=== PATIENT | male | born 1980 | race Caucasian/White ===

== ENCOUNTER 2017-02-22 05:38 | Emergency (ER) | payer OTHER ==
[2017-02-22] MEDS ORDERED: PROPARACAINE 0.5% OPHTH SOLN 15 ML BTL OS ONE (05:58)
--- NOTE | 2017-02-22 05:58 | PDOC ---
History of Present Illness - General Chief Complaint: Eye Problem Stated Complaint: EYE PROBLEM Time Seen by Provider: 02/22/17 05:57 History Source: Patient - History of Present Illness Initial Comments: 02/22/17 06:23 37-year-old male without any medical problems presents to the emergency department complaining of left more than right I discomfort. Patient states he was sleeping this evening and believes he was rubbing his eyes. He woke up complaining of eye discomfort denies any blurry vision or visual disturbance. Patient denies working with metal shavings or UV light. Last tetanus within 5 years. Past History - Past Medical History Allergies/Adverse Reactions: Allergies Allergy/AdvReac Type Severity Reaction Status Date / Time No Known Allergies Allergy Verified 02/22/17 05:58 Home Medications: Ambulatory Orders Acetaminophen W/ Codeine #3 [Tylenol # 3 -] 1 tab PO Q6H #12 tablet MDD 4 Erythromycin 0.5% Eye Ointment [Erythromycin 0.5% Eye Ointment -] 1 applic OU TID #1 tube 02/22/17 Review of Systems - Review of Systems Able to Perform ROS?: Yes Comments:: 02/22/17 06:24 CONSTITUTIONAL: Absent: fever, chills, diaphoresis, generalized weakness, malaise, loss of appetite HEENT: +Left>right eye discomfort; neg visual disturbance Absent: rhinorrhea, nasal congestion, throat pain, throat swelling, difficulty swallowing, mouth swelling, ear pain, eye pain, visual Changes Is the patient limited [place] proficient: No *Physical Exam - Physical Exam Comments: 02/22/17 06:26 GENERAL: Well developed, well nourished. Awake and alert. No acute distress. HEENT: Normocephalic, atraumatic. PERRLA, EOMI. No conjunctival pallor. Sclera are non- icteric. Moist mucous membranes. Oropharynx is clear. V/A: right: 20/20 Left 20/20 b/l: 20/20 *DC/Admit/Observation/Transfer Diagnosis at time of Disposition: Corneal abrasion Qualifiers: Encounter type: initial encounter Laterality: left Qualified Code(s): S05.02XA - Injury of conjunctiva and corneal abrasion without foreign body, left eye, initial encounter - Discharge Dispostion Disposition: HOME Condition at time of disposition: Stable - Prescriptions Prescriptions: Erythromycin 0.5% Eye Ointment [Erythromycin 0.5% Eye Ointment -] 1 applic OU TID #1 tube Acetaminophen W/ Codeine #3 [Tylenol # 3 -] 1 tab PO Q6H #12 tablet MDD 4 - Referrals Referrals: Renita Dooley MD [Primary Care Provider] - Bernardo Vasquez [Staff Physician] - - Patient Instructions Printed Discharge Instructions: DI for Corneal Abrasion Additional Instructions: Apply erythromycin ophthalmic ointment to both eyes 3 times a day. Take Tylenol as needed for pain Follow with the up curb setter as listed on your discharge Return back to the emergency department for severe/persistent or worsening symptoms. You did not receive a tetanus rooster today because you had one within 5 years.
[2017-02-22 06:00] VITALS: BP 126/65; PULSE 75; TEMP 97.5; BMI 36.1
[2017-02-22] MEDS ORDERED: TETRACAINE 0.5% OPHTH SOLN 2 ML BOTTLE ONE (06:08)
[2017-02-22] MEDS ORDERED: FLUORESCEIN NA 1 EA STRIP ONE (06:08)
[2017-02-22] MEDS ORDERED: ACETAMINOPHEN WITH CODEINE 300MG/30MG TABLET PO ONE (06:15)
[2017-02-22] MEDS ORDERED: ERYTHROMYCIN 0.5% OPHTHALMIC OINTMENT 3.5 GM TUBE OU ONE (06:16)
[2017-02-22] MEDS ORDERED: TETRACAINE 0.5% HCL 0.6ML DROPPER.BOTTLE OU ONE (06:30)
[2017-02-22] MEDS ORDERED: ERYTHROMYCIN 0.5% OPHTHALMIC OINTMENT 3.5 GM TUBE ONE (06:31)
[2017-02-22] MEDS ORDERED: ACETAMINOPHEN WITH CODEINE 300MG/30MG TABLET ONE (06:31)
[2017-02-22] MEDS ORDERED: FLUORESCEIN NA 1 EA STRIP OU ONE (06:41)
--- NOTE | 2017-02-22 08:51 | PDOC ---
*Physical Exam - Vital Signs Last Vital Signs Temp Pulse Resp BP Pulse Ox 97.5 F L 75 20 126/65 100 02/22/17 05:58 02/22/17 05:58 02/22/17 05:58 02/22/17 05:58 02/22/17 05:58 ED Treatment Course - Medications Given in the ED: ED Medications Discontinued Medications Generic Name Dose Route Start Last Admin Trade Name Flako PRN Reason Stop Dose Admin Acetaminophen/Codeine Phosphate 1 tab 02/22/17 06:15 02/22/17 06:31 Tylenol # 3 - PO 02/22/17 06:16 1 tab ONCE ONE Administration Erythromycin 1 applic 02/22/17 06:16 02/22/17 06:31 Erythromycin 0.5% Eye Ointment OU 02/22/17 06:17 1 applic ONCE ONE Administration Fluorescein Sodium 1 ea 02/22/17 06:41 02/22/17 06:42 Fluorets - OU 02/22/17 06:42 1 ea NOW ONE Administration Proparacaine HCl 2 drop 02/22/17 05:58 02/22/17 06:29 Alcaine - OS 02/22/17 05:59 Not Given ONCE ONE Tetracaine HCl 1 drop 02/22/17 06:30 02/22/17 06:32 Tetravisc 0.5% Eye Drops - OU 02/22/17 06:31 1 drop ONCE ONE Administration Medical Decision Making - Medical Decision Making 02/22/17 08:51 [facility] called to say they did not receive rx for tylenol # 3. Rx resent *DC/Admit/Observation/Transfer Diagnosis at time of Disposition: Corneal abrasion Qualifiers: Encounter type: initial encounter Laterality: left Qualified Code(s): S05.02XA - Injury of conjunctiva and corneal abrasion without foreign body, left eye, initial encounter - Discharge Dispostion Disposition: HOME Condition at time of disposition: Stable - Prescriptions Prescriptions: Erythromycin 0.5% Eye Ointment [Erythromycin 0.5% Eye Ointment -] 1 applic OU TID #1 tube Acetaminophen W/ Codeine #3 [Tylenol # 3 -] 1 tab PO Q6H #12 tablet MDD 4 - Referrals Referrals: Renita Dooley MD [Primary Care Provider] - Bernardo Vasquez [Staff Physician] - - Patient Instructions Printed Discharge Instructions: DI for Corneal Abrasion Additional Instructions: Apply erythromycin ophthalmic ointment to both eyes 3 times a day. Take Tylenol as needed for pain Follow with the up residential mortgage underwriter as listed on your discharge Return back to the emergency department for severe/persistent or worsening symptoms. You did not receive a tetanus rooster today because you had one within 5 years. - Post Discharge Activity
== END 2017-02-22 06:36 | disposition home or self-care (01) ==
LOC: JER 05:38
DX: S05.02XA Injury of conjunctiva and corneal abrasion without foreign body, left eye, initial encounter (principal); X58.XXXA Exposure to other specified factors, initial encounter; Y93.89 Activity, other specified; Y92.018 Other place in single-family (private) house as the place of occurrence of the external cause
CPT/HCPCS: 99281-25

== ENCOUNTER 2018-08-28 02:10 | Emergency (ER) | payer OTHER ==
[2018-08-28] MEDS ORDERED: FLUORESCEIN NA 1 EA STRIP ONE (03:48)
[2018-08-28] MEDS ORDERED: TETRACAINE 0.5% OPHTH SOLN 2 ML BOTTLE ONE (03:48)
[2018-08-28 04:01] VITALS: BP 128/76; PULSE 82; TEMP 98.6; BMI 25.1
--- NOTE | 2018-08-28 04:10 | PDOC ---
History of Present Illness - General Chief Complaint: Eye Problem Stated Complaint: EYE PROBLEM, FOREIGN BODY Time Seen by Provider: 08/28/18 03:17 - History of Present Illness Initial Comments: 08/28/18 04:02 CHIEF COMPLAINT: eye pain HISTORY OF PRESENT ILLNESS: 38 yo M with no PMH presents to ED with right sided eye pain since this evenin around 9 pm. Patient reports that he was working in his attic "and moving a bunch of stuff around" when he noticed the irritation to his right eye. He tried to go to sleep but woke up with discomfort and pain to the R eye, and then the L eye started feeling irritated as well. Patient denies wearing contacts. No recent travel or sick contacts. PAST MEDICAL HISTORY: Denies past medical history FAMILY HISTORY: Denies SOCIAL HISTORY: Denies tobacco, alcohol, illicit drug use. SURGICAL HISTORY: Denies ALLERGIES: No known drug allergies REVIEW OF SYSTEMS General/Constitutional: Denies fever or chills. Denies weakness, weight change. HEENT: Denies change in vision. Denies ear pain or discharge. Denies sore throat. Cardiovascular: Denies chest pain or shortness of breath. Respiratory: Denies cough, wheezing, or hemoptysis. Gastrointestinal: Denies nausea, vomiting, diarrhea or constipation. Denies rectal bleeding. Genitourinary: Denies dysuria, frequency, or change in urination. Musculoskeletal: Denies joint or muscle swelling or pain. Denies neck or back pain. Skin and breasts: Denies rash or easy bruising. Neurologic: Denies headache, vertigo, loss of consciousness, or loss of sensation. PHYSICAL EXAM General Appearance: Well-appearing, appropriately dressed. No apparent distress , no intoxication. HEENT: No corneal abrasion appreciated on flourescein stain exam. EOMI, PERRLA, normal ENT inspection, normal voice, TMs normal, pharynx normal. No conjunctival pallor. No photophobia, scleral icterus. Neck: Supple. Trachea midline. No tenderness, rigidity, carotid bruit, stridor , lymphadenopathy, or thyromegaly. Respiratory/Chest: Lungs CTAB. No shortness of breath, chest tenderness, respiratory distress, accessory muscle use. No crackles, rales, rhonchi, stridor , wheezing, dullness Cardiovascular: RRR. S1, S2. No JVD, murmur, bradycardia, tachycardia. Vascular Pulses: Dorsalis-Pedis (R): 2+, Dorsalis-Pedis (L): 2+ Gastrointestinal/Abdominal: Normal bowel sounds. Abdomen soft, non-distended. No tenderness or rebound tenderness. No organomegaly, pulsatile mass, guarding , hernia, hepatomegaly, splenomegaly. Lymphatic: No adenopathy, tenderness. Musculoskeletal/Extremities: Normal inspection. FROM of all extremities, normal capillary refill. Pelvis Stable. No CVA tenderness. No tenderness to extremities, pedal edema, swelling, erythema or deformity. Integumentary: Appropriate color, dry, warm. No cyanosis, erythema, jaundice or rash Neurologic: security expert II-XII intact. Fully oriented, alert. Appropriate mood/affect. Motor strength 5/5. No appreciable EOM palsy, facial droop or sensory deficit. 08/28/18 04:05 Past History - Past Medical History Allergies/Adverse Reactions: Allergies Allergy/AdvReac Type Severity Reaction Status Date / Time No Known Allergies Allergy Verified 08/28/18 04:00 Home Medications: Ambulatory Orders Acetaminophen W/ Codeine #3 [Tylenol # 3 -] 1 tab PO Q6H #12 tablet MDD 4 Erythromycin 0.5% Eye Ointment [Erythromycin 0.5% Eye Ointment -] 1 applic OU TID #1 tube 02/22/17 Polymyxin B Sulf/Trimethoprim [Polymyxin B-Tmp Eye Drops] 1 - 2 drop OU QID #1 bottle 08/28/18 - Suicide/Smoking/Psychosocial Hx Smoking History: Never smoked Have you smoked in the past 12 months: No Information on smoking cessation initiated: No Hx Alcohol Use: No Drug/Substance Use Hx: No *Physical Exam - Vital Signs Last Vital Signs Temp Pulse Resp BP Pulse Ox 98.6 F 61 20 132/64 100 08/28/18 02:11 08/28/18 02:37 08/28/18 02:11 08/28/18 02:37 08/28/18 02:37 Medical Decision Making - Medical Decision Making 08/28/18 04:05 38 yo M with no PMH presents to ED with right sided eye pain since this evenin around 9 pm. Likely allergic conjuntivitis. *DC/Admit/Observation/Transfer Diagnosis at time of Disposition: Conjunctivitis Qualifiers: Conjunctivitis type: acute Acute conjunctivitis type: unspecified Laterality: bilateral Qualified Code(s): H10.33 - Unspecified acute conjunctivitis, bilateral - Discharge Dispostion Disposition: HOME Condition at time of disposition: Stable Decision to Admit order: No - Prescriptions Prescriptions: Polymyxin B Sulf/Trimethoprim [Polymyxin B-Tmp Eye Drops] 1 - 2 drop OU QID #1 bottle - Referrals Referrals: Cecilia Medeiros MD [Primary Care Provider] - Uday Ely MD [Staff Physician] - - Patient Instructions Printed Discharge Instructions: DI for Conjunctivitis Additional Instructions: Please use eyedrops as prescribed. If symptoms persist after 5-7 days, please follow up with ophthalmology. If you develop any sharp, sudden pain to your eye , or any change in vision, please return to the ER. - Post Discharge Activity
== END 2018-08-28 04:16 | disposition home or self-care (01) ==
LOC: JER 02:10
DX: H10.33 Unspecified acute conjunctivitis, bilateral (principal)
CPT/HCPCS: 99282-25

== ENCOUNTER 2022-07-07 01:19 | Emergency (ER) | payer SELFPAY ==
[2022-07-07 01:35] VITALS: BP 127/81; PULSE 77; RESP 20; TEMP 97.9; BMI 32.3
[2022-07-07] MEDS ORDERED: KETOROLAC TROMETHAMINE 30 MG/1 ML VIAL IM ONE (04:12)
[2022-07-07] MEDS ORDERED: KETOROLAC TROMETHAMINE 30 MG/1 ML VIAL ONE (04:19)
== END 2022-07-07 04:32 | disposition home or self-care (01) ==
LOC: JER 01:19
PROC: 3E0233Z Introduction of Anti-inflammatory into Muscle, Percutaneous Approach (ICD-10-PCS; principal; 2022-07-07)
DX: M54.2 Cervicalgia (principal)
CPT/HCPCS: 36415; 87651; 99284-25